=== PATIENT | female | born 1955 | race Caucasian/White ===

== ENCOUNTER → 2019-01-09 12:54 | Outpatient (ROUT) | payer BC, SELFPAY | PROVIDERS: Family Provider Family Medicine; PCP Family Medicine; Visit Provider Dermatology | DX: R59.9 Enlarged lymph nodes, unspecified (principal); L02.811 Cutaneous abscess of head [any part, except face] | CPT/HCPCS: 87070; 87075; 87077; 87147; 87186; 87205 ==

== ENCOUNTER → 2020-05-27 12:04 | Outpatient (CLI) | payer BC, SELFPAY ==
--- NOTE | 2020-05-27 12:11 | DI.RAD.S_ITS ---
PROCEDURE: XR CERVICAL SPINE 4V OR 5V INDICATIONS: Neck/BI Shoulder Pain TECHNIQUE: 5 views of the cervical spine acquired. COMPARISON: None. FINDINGS: Bones: No fractures or dislocations to the T1 level. Oblique images demonstrate no bony foraminal stenoses. Soft tissues: No prevertebral soft tissue swelling. IMPRESSION: Normal alignment, no subluxation, a definite pattern of spinal and foraminal stenosis is not seen. Dictated by: William Bernstein M.D. on 05/27/2020 at 14:02 Approved by: William Bernstein M.D. on 05/27/2020 at 14:03
--- NOTE | 2020-05-27 12:11 | DI.RAD.S_ITS ---
PROCEDURE: XR SHOULDER RT MIN 2V INDICATIONS: Neck/BI Shoulder Pain TECHNIQUE: 3 views of the shoulder were acquired. COMPARISON: None. FINDINGS: Bones: No fractures or dislocations. Mild AC joint osteoarthritis. No suspicious bony lesions. Visualized ribs appear intact. Soft tissues: No suspicious soft tissue calcifications. IMPRESSION: No trauma. Mild AC joint osteoarthritis. Dictated by: Willaim Bernstein M.D. on 05/27/2020 at 14:04 Approved by: William Bernstein M.D. on 05/27/2020 at 14:04
--- NOTE | 2020-05-27 12:11 | DI.RAD.S_ITS ---
PROCEDURE: XR SHOULDER LT MIN 2V INDICATIONS: Neck/BI Shoulder Pain TECHNIQUE: 3 views of the shoulder were acquired. COMPARISON: None. FINDINGS: Bones: No fractures or dislocations. No suspicious bony lesions. Visualized ribs appear intact. Soft tissues: No suspicious soft tissue calcifications. IMPRESSION: Mild AC joint osteoarthritis, mild glenohumeral joint degenerative change but no trauma or subluxation is seen. Dictated by: William Bernstein M.D. on 05/27/2020 at 14:03 Approved by: William Bernstein M.D. on 05/27/2020 at 14:04
== END ==
PROVIDERS: Family Provider Family Medicine; PCP Family Medicine; Referring Provider Chiropractor; Visit Provider Chiropractor
DX: M54.2 Cervicalgia (principal); M25.511 Pain in right shoulder; M25.512 Pain in left shoulder; M19.012 Primary osteoarthritis, left shoulder; M19.011 Primary osteoarthritis, right shoulder; M99.01 Segmental and somatic dysfunction of cervical region
CPT/HCPCS: 72050; 73030

== ENCOUNTER → 2020-11-07 11:12 | Outpatient (CLI) | payer BC, SELFPAY ==
[2020-11-07 11:30] LABS: Add Manual Diff / Slide Review NO; Basophils Absolute Auto 0 /uL (0-100); Basophils Percent Auto 0.9 % (0-2); Eosinophils Absolute Auto 100 /uL (0-450); Eosinophils Percent Auto 3.2 % (2-4); Hematocrit 41.1 % (36-46); Hemoglobin 13.9 g/dL (12.0-16.0); Lymphocytes Absolute Auto 2100 /uL (1100-4500); Lymphocytes Percent Auto 45.4 % (25-40); Mean Corpuscular HGB Conc 33.9 % (30-36); Mean Corpuscular Hemoglobin 31.2 PG (26-34); Mean Corpuscular Volume 92.2 fL (80-100); Monocytes Absolute Auto 400 /uL (0-900); Monocytes Percent Auto 8.6 % (3-14); Neutrophils Absolute Auto 1900 /uL (1500-7000); Neutrophils Percent Auto 41.9 % (50-75); Platelet Count 248 X10^3/uL (150-400); Red Blood Cell Count 4.46 X10^6/uL (4.0-5.2); Red Cell Distribution Width 13.1 % (11.6-14.8); White Blood Cell Count 4.6 X10^3/uL (4.5-11.0)
[2020-11-07 11:39] LABS: Hemoglobin A1C% w Est Avg Glu 5.9 % (4.0-6.0)
[2020-11-07 11:48] LABS: Alanine Aminotransferase 24 IU/L (<35); Albumin 4.3 g/dL (3.5-5.0); Albumin Globulin Ratio 1.4 (1.0-2.8); Alkaline Phosphatase 60 U/L (38-126); Aspartate Aminotransferase 32 IU/L (14-36); BUN Creatinine Ratio 18.8 (6-22); Bilirubin Total 0.7 mg/dL (0.2-1.3); Blood Urea Nitrogen 13 mg/dL (7-17); Calcium 9.3 mg/dL (8.4-10.2); Carbon Dioxide 30 mmol/L (22-32); Chloride 105 mmol/L (98-107); Cholesterol 262 mg/dL (140-199); Estimated Glomerular Filt Rate > 60.0 mL/min (>60); Glucose 110 mg/dL (80-110); HDL Cholesterol 71 mg/dL (40-60); HEMOLYSIS < 15 (0-50); LDL Cholesterol Calculated 175 mg/dL (<100); Potassium 4.3 mmol/L (3.4-5.1); Sodium 139 mmol/L (137-145); Total Protein 7.3 g/dL (6.3-8.2); Triglycerides 81 mg/dL (35-150)
[2020-11-07 12:55] LABS: Free T4, Direct Thyroxine 0.99 ng/dL (0.78-2.19)
[2020-11-07 13:10] LABS: Thyroid Stimulating Hormone 2.02 uIU/mL (0.47-4.68)
[2020-11-08 06:10] LABS: Thyroid Peroxidase Antibodies <9 IU/mL (0-34)
== END ==
PROVIDERS: Family Provider Family Medicine; PCP Naturopath; Referring Provider Naturopath; Visit Provider Naturopath
DX: Z00.00 Encounter for general adult medical examination without abnormal findings (principal); R53.83 Other fatigue
CPT/HCPCS: 36415; 80053; 80061; 83036; 84439; 84443; 84481; 85025; 86376

== ENCOUNTER 2021-07-14 13:09 | Emergency (ER) | payer BC, SELFPAY ==
[2021-07-14 13:17] VITALS: BP 166/95; PULSE 84; RESP 22; TEMP 36.3; O2SAT 100; BMI 25.0
--- NOTE | 2021-07-14 13:21 | DI.RAD.S_ITS ---
PROCEDURE: XR HAND RT 2V INDICATIONS: fall TECHNIQUE: 2 views of the hand(s) acquired. COMPARISON: None. FINDINGS: Bones: Acute comminuted and impacted distal radial fracture is seen. Slightly displaced ulnar styloid fracture is also noted. No gross acute fracture or dislocation is seen in the carpal bones, metacarpal bones and phalanges. Osteoarthritic changes throughout right hand and wrist joints are seen.. Carpal bones are normally aligned. No suspicious bony lesions. Soft tissues: No suspicious soft tissue calcifications. IMPRESSION: Wrist fracture as above. No definite acute right hand fracture or dislocation. Dictated by: Estrada Perez M.D. on 07/14/2021 at 13:52 Approved by: Estrada Perez M.D. on 07/14/2021 at 13:57
--- NOTE | 2021-07-14 13:22 | DI.RAD.S_ITS ---
PROCEDURE: XR WRIST RT 2V INDICATIONS: fall TECHNIQUE: 2 views of the wrist were acquired. COMPARISON: None. FINDINGS: Bones: Acute comminuted and impacted fracture involving distal radius is seen. Slightly displaced ulnar styloid fracture is also noted. No dislocation. Wrist joint osteoarthritic changes are seen. Soft tissues: No suspicious soft tissue calcifications. IMPRESSION: Acute comminuted and impacted distal radial fracture and slightly displaced ulnar styloid fracture. Dictated by: Estrada Perez M.D. on 07/14/2021 at 13:50 Approved by: Estrada Perez M.D. on 07/14/2021 at 13:52
[2021-07-14] MEDS: HYDROCODONE/ACET 5/325 TABLET 1 TAB PO ×2 (13:48→18:06)
--- NOTE | 2021-07-14 18:47 | ED_ITS ---
HPI - Extremity Injury (Upper) General Chief Complaint: Extremity Injury, Upper Stated Complaint: Poss broken right wrist Time Seen by Provider: 07/14/21 18:41 Source: patient and family Mode of arrival: Wheelchair History of Present Illness HPI narrative: 65-year-old woman with no significant medical history and no current medications slipped in her stocking feet half way down carpeted stairs landing on an outstretched left wrist left hip and slid the remainder of the way to the floor. She estimates approximately 10 stairs. She is not complaining of any other pain specifically no loss of consciousness, headache, head pain neck pain extremity pain aside from the wrist no thoracic pain. She was able to get up by herself and get to the emergency department for further evaluation. Related Data Home Medications Medication Instructions Recorded Confirmed Fish Oil 1,000 mg PO QDAY #0 11/21/12 Allergies Allergy/AdvReac Type Severity Reaction Status Date / Time Sulfa (Sulfonamide AdvReac Severe vomiting Verified 07/14/21 13:17 Antibiotics) and high [SULFA (SULFONAMIDE fever ANTIBIOTICS)] amoxicillin [AMOXICILLIN] AdvReac Unknown Verified 07/14/21 13:17 Review of Systems Review of Systems Narrative: Pertinent positive and negative findings as per HPI Remainder of review of systems is otherwise unremarkable for Constitutional: Fevers, chills, weakness ENT: No sore throat, neck pain, ear pain CV: Chest pain, palpitations, Respiratory: Cough, wheeze, dyspnea GI: Nausea, vomiting, diarrhea, : Dysuria, hematuria, Patient History Social History Smoking Status: Never smoker Smoking Status: Never smoker alcohol intake frequency: 0-2 drinks per day Substance Use Type: does not use Exam Initial Vital Signs Initial Vital Signs: Vital Signs Temperature 97.4 F L 07/14/21 13:17 Pulse Rate 84 07/14/21 13:17 Respiratory Rate 07/14/21 13:17 Blood Pressure 166/95 H 07/14/21 13:17 Pulse Oximetry 100 07/14/21 13:17 General: Healthy appearing, in no acute distress. Able to give a complete and coherent history. Well-nourished well-developed HEENT: Moist mucous membranes, normal sclera with reactive pupils, head is atraumatic Neck: No tenderness that occipital insertion sites or midline along the cervical spine supple Respiratory: Lungs are clear to auscultation, no wheezing no rales no rhonchi. Full and symmetrical air movement Chest: No chest contusions are abrasion and no tenderness with AP compression of the ribs Cardiac: Regular rate and rhythm no murmurs no bruits Abdomen: Soft, nontender, good bowel tones, no flank pain Thoracic lumbar spine: No tenderness along the thoracic or lumbar spine to pal pation, no pain elicited with pelvic ring manipulation. Skin: Warm and dry, no rashes Neurologic: Grossly neurologically intact with no obvious asymmetries or abnormalities Extremities: Right wrist with swelling, hematoma and deformity. No injuries to other extremities. All extremities are neurovascularly intact Psych: Cooperative, appropriate insight and affect Procedures Orthopedic Fracture Reduction Right wrist: Time of procedure: 19:23 Side: right Fracture Reduction Location: radius Analgesia: hematoma block Technique: direct manipulation Post Reduction X-rays Demonstrate: other (Post reduction CT is done for postoperative planning) Post-reduction vascular exam: intact Splint Applied: Yes Patient Tolerated Procedure: Well Orthopedic Splinting/Casting Right wrist: Time of procedure: 19:24 Side: right Upper Extremity Injury Location: wrist Upper Extremity Immobilizer: sling/shoulder immobilizer and volar splint Post splinting neuro exam: intact Post splinting vascular exam: intact Placed by: Provider Course Orders Ordered: ED Orders 07/14/21 13:21 XR hand RT 2V Stat 07/14/21 13:22 XR wrist RT 2V Stat 07/14/21 19:05 CT UE LT wo con Stat Discontinued Medications Hydrocodone Bitart/Acetaminophen (Hydrocodone/Acet 5/325 Tablet) 1 tab PO NOW ONE Stop: 07/14/21 13:45 Last Admin: 07/14/21 13:48 Dose: 1 tab Documented by: PATRICIA Hydrocodone Bitart/Acetaminophen (Hydrocodone/Acet 5/325 Tablet) 1 tab PO NOW ONE Stop: 07/14/21 18:04 Last Admin: 07/14/21 18:06 Dose: 1 tab Documented by: PATRICIA Hydromorphone HCl (Hydromorphone 1 Mg Inj) 1 mg IM NOW ONE Stop: 07/14/21 18:58 Last Admin: 07/14/21 19:00 Dose: 1 mg Documented by: Lidocaine/Sodium Bicarbonate (Lido 1%/Sod Bicarb 8.4% (10ml) 10 Ml Syringe) 10 ml INJ NOW ONE Stop: 07/14/21 18:50 Last Admin: 07/14/21 18:57 Dose: 10 ml Documented by: Vital Signs Vital signs: Vital Signs - 8 hr 07/14/21 13:17 Temperature 97.4 F L Pulse Rate 84 Respiratory Rate 22 Blood Pressure 166/95 H Pulse Oximetry 100 Discharge Plan Departure Prescriptions: No Action Fish Oil 1,000 mg PO QDAY Qty: 0 0RF Referrals: Shila Villarreal ND [Primary Care Provider] -
[2021-07-14] MEDS: LIDO 1%/SOD BICARB 8.4% (10ML) 10 ML SYRINGE INJ (18:57)
[2021-07-14] MEDS: HYDROMORPHONE 1 MG INJ IM (19:00)
--- NOTE | 2021-07-14 19:05 | DI.CT.S_ITS ---
PROCEDURE: CT UE RT WO CON INDICATIONS: Right wrist fracture, post reduction, pre-op TECHNIQUE: Noncontrast 1 mm axial sections acquired through the carpal bones, with coronal and sagittal reformats. COMPARISON: None. FINDINGS: Highly comminuted fracture of the distal radial metaphysis with extension of fracture planes into the radiocarpal joint space. Numerous fracture fragments are displaced. There is overall angulation of the dominant distal radial fracture fragment. The remaining bones are intact. There is a moderate sized wrist joint effusion. IMPRESSION: Comminuted, displaced, and angulated distal radial fracture with intra-articular extension. Dictated by: Bakari Sagastume M.D. on 07/14/2021 at 19:47 Approved by: Bakari Sagastume M.D. on 07/14/2021 at 19:49
[2021-07-14] MEDS: HYDROCODONE/ACET 5/325 PREPACK 1 BOTTLE MISC (19:39)
[2021-07-14 19:48] VITALS: BP 131/71; PULSE 84; RESP 16; O2SAT 93
== END 2021-07-14 19:54 | disposition home or self-care (01) ==
PROVIDERS: Emergency Provider Emergency Medicine; Family Provider Family Medicine; PCP Naturopath
DX: S52.501A Unspecified fracture of the lower end of right radius, initial encounter for closed fracture (principal); W10.9XXA Fall (on) (from) unspecified stairs and steps, initial encounter
CPT/HCPCS: 25605; 73100; 73120; 73200; 96372; 99284; J1170

== ENCOUNTER → 2021-07-16 13:07 | Outpatient (CLI) | payer BC, SELFPAY ==
[2021-07-16 16:29] LABS: COVID19 -Nasal RAPID Negative (Negative)
== END ==
PROVIDERS: Family Provider Family Medicine; PCP Naturopath; Visit Provider Family Medicine Sleep Medicine
DX: Z20.822 Contact with and (suspected) exposure to COVID-19 (principal)
CPT/HCPCS: 87635; C9803

== ENCOUNTER 2021-07-17 12:07 | Day surgery (SDC) | payer BC, SELFPAY ==
[2021-07-17] VITALS (22 sets, daily range): BP systolic 102–150; BP diastolic 7–83; PULSE 74–116; RESP 8–22; TEMP 36.2–37; O2SAT 85–100; BMI 26.6
--- NOTE | 2021-07-17 | DI.RAD.S_ITS ---
PROCEDURE: XR CHEST 1V INDICATIONS: Rule out pneumo TECHNIQUE: One view of the chest was acquired. COMPARISON: None. FINDINGS: Surgical changes and devices: None. Lungs and pleura: Mild pulmonary vascular congestion is seen. No focal infiltrate. No pleural effusions or pneumothorax. Mediastinum: Mediastinal contours appear normal. Heart size is normal. Bones and chest wall: No suspicious bony lesions. Overlying soft tissues appear unremarkable. IMPRESSION: Mild pulmonary vascular congestion. No focal infiltrate, pleural effusion or pneumothorax. Dictated by: Estrada Perez M.D. on 07/17/2021 at 19:36 Approved by: Estrada Perez M.D. on 07/17/2021 at 19:39
[2021-07-17] MEDS: LACTATED RINGERS 1,000 ML 42 ML IV ×2 (12:46→16:47)
--- NOTE | 2021-07-17 14:35 | SUR.OPER ---
Supine on padded OR bed, head on pillow, LEFT arm secured on padded arm boards at <90 degrees. Right arm on the handtable, legs uncrossed, safety belt at thigh, tape over blanket over lower legs.
[2021-07-17] MEDS: CEFAZOLIN 2 GM/20 ML SYRINGE IV (14:47)
[2021-07-17] MEDS: BUPIVACAINE 0.25% W/ EPI 30 ML VIAL INJ (15:06)
[2021-07-17] MEDS: fentaNYL 100 MCG/2 ML INJ IV ×3 (15:44→16:41)
--- NOTE | 2021-07-17 15:48 | SUR.OPER ---
patient's right middle finger ring was taken off in the OR by the surgeon and sent with the patient to OR in a specimen cup
--- NOTE | 2021-07-17 16:09 | PM.OP.1 ---
Operative Date/Time/Diagnoses Date of procedure: 07/17/21 Time of procedure: 16:09 Pre-op diagnosis: right Distal radius fracture intra-articular s52.571a right Ulnar styloid fracture s52.611a Post-op diagnosis: same Procedure & Clinicians Procedure: Open reduction internal fixation three-part plus intra-articular distal radius fracture, right CPT code 24574 Closed treatment ulnar styloid fracture CPT code 57456 Same procedure as scheduled: Yes Indications: Patient is a 65-year-old female that fell going down some stairs onto her right hand. She is right-hand dominant. She was seen at [facility] and found to have a displaced intra-articular right distal radius fracture and ulnar styloid fracture. She was indicated for open reduction internal fixation to restore radial inclination length and dorsal tilt and reduce the risks of posttraumatic arthritis and progressive dysfunction. The risks and benefits of the procedure have been discussed with the patient even opportunity to ask questions. The risks of surgery include but are not limited to infection, malunion, nonunion, persistence of pain, damage to nerves and blood vessels, posttraumatic arthritis, DVT, PE, cardiopulmonary complications and . The patient expressed a thorough understanding of the risks and benefits of surgery and has elected to proceed. Consent was signed. In office note had been noted that she had some numbness into her fingers and there was some concern for an evolving carpal tunnel syndrome however on examination in the preoperative area she denied numbness in her fingers. Noted some to pain in her thumb that improved after loosening the splint. There were no signs of acute carpal tunnel syndrome. Surgeon: Jacey Fuller Click Yes if Unassisted: Yes Anesthesia Type: General and Local Operative Notes Findings: Displaced intra-articular distal radius fracture with comminution both ulnarly and at the radial styloid. The fracture was cleaned and reduced and pinned with a K-wire. A standard Arthrex plate was then fit to the fracture provisionally pinned and checked for position. Once this was completed plate was definitively fixed to the bone. Following distal radius fixation the DRUJ was checked. Shuck was symmetrical to the contralateral side. Closed treatment ulnar styloid fracture. No evidence of scapholunate widening on intraoperative x-ray Closure Type: primary Prosthetic devices, grafts, tissues, transplants, or devices: Arthrex 3 hole standard volar distal radius plate cortical and locking screws in the shaft and locking screws and pegs distally. Estimated Blood Loss (mL): 10 Blood products transfused: none Tourniquet time (min): 46 Procedure in detail: The patient was seen in the site of surgery was marked in the preoperative area. The patient was then brought to the operating room placed on the operative table in the supine position. Hand table was placed on the operative side. General anesthesia was administered. SCDs were worn on the legs and all bony prominence were padded. A well-padded brachial tourniquet was placed. A formal time-out procedure was called confirming the patient's side and site of surgery administration of preoperative antibiotics and presence of consent. All agreed. The operative extremity was prepped and draped in the standard sterile fashion. An Esmarch was used for exsanguination and the brachial tourniquet was raised to 250 mm of mercury. Standard FCR approach to the wrist was drawn in the incision made. The FCR was exposed. The sheath was opened and the tendon was retracted ulnar protect the palmar cutaneous branch of the median nerve. Floor of the FCR was opened to expose the deep muscles. The FPL was retracted ulnar and the pronator quadratus was released from the radial border and reflected ulnar to expose the distal radius and distal fracture. Fracture was disimpacted and clean. The fracture was reduced with traction flexion ulnar deviation. A K-wire was advanced percutaneously from the radial styloid to the metaphysis to hold the reduction. Reduction was checked fluoroscopy and radial inclination tilt was recreated. There was comminution dorsally. Three hole standard Arthrex volar locking plate was selected and positioned and provisionally fixed with K-wires. Once this was satisfactory, nonlocking 3.5 screws placed in the oblong hole and secured. Distal screws were then placed 1st with nonlocking screws followed by locking pegs and screws. These were placed carefully not to penetrate the dorsal cortex. Once this was completed and checked for prominence the final shaft screws were placed. Again with care to avoid prominence. Final intraoperative images were obtained reviewed demonstrating no evidence of hardware prominence. Wrist motion was checked and was full and maintained and stable DRUJ. Pronation and supination were complete without blocks. The wound was then irrigated and closed in layers. Hemostasis was achieved and the tourniquet was released prior to closing. 3-0 Vicryl was used deep and 4-0 Monocryl subcutaneous and 3 O nylon in the skin. Sterile dressings with a volar splint were applied. There no immediate complications. Surgical counts were correct. The patient tolerated the procedure well was taken recovery room. Complications: none Post-operative Condition: stable Disposition: PACU Plan for aftercare: Weight-bearing limited to less than 2 lb on the operative extremity. May use a fork or coffee cup with that hand. Keep the splint dry. May loosen if needed. Otherwise keep intact. Follow-up in 2 weeks for suture removal placement of removable wrist brace and initiation of motion and therapy.
[2021-07-17] MEDS: ONDANSETRON 4 MG/2 ML INJ IV (16:27)
--- NOTE | 2021-07-17 16:53 | SUR.PHASEI ---
1650 SBAR report at bedside to Kira RN and Josh RN Pt moaning in pain, medicated with Fentanyl, Dr Stanford at bedside to do block, Dr Fuller to bedside to see patient at 1645 with patient reporting 18/10 pain
[2021-07-17] MEDS: HYDROMORPHONE 2 MG INJ IV (16:54)
--- NOTE | 2021-07-17 17:05 | SUR.PHASEI ---
Block start time [1701] . Monitoring initiated and maintained throughout procedure. Medications given by anesthesiologist instructions. Patient remained stable throughout procedure, no adverse reactions noted. Block end time [1705].
--- NOTE | 2021-07-17 19:05 | SUR.PHASEII ---
Pt awakens from sleep, reports that she feels like she 'can't get air. Coarse crackles auscaltated right lower lungs, otherwise breath sounds clear. Dr doshi informed, Chest x-ray ordered, RBAV.
--- NOTE | 2021-07-17 20:27 | SUR.PHASEII ---
2020 hrs. Chest x-ray negative. Pt states breathing easily, spo2 mid [address]. Dr Abdoulaye dozier discharge.
== END 2021-07-17 20:20 | disposition home or self-care (01) ==
PROVIDERS: Family Provider Family Medicine; PCP Naturopath; Referring Provider Orthopaedic Surgery Foot and Ankle Surgery; Visit Provider Orthopaedic Surgery Foot and Ankle Surgery
PROC: (CPT 25609; principal; 2021-07-17 13:45)
DX: S52.571A Other intraarticular fracture of lower end of right radius, initial encounter for closed fracture (principal); S52.611A Displaced fracture of right ulna styloid process, initial encounter for closed fracture; W10.9XXA Fall (on) (from) unspecified stairs and steps, initial encounter
CPT/HCPCS: 25609; 64450; 71045; C1713; J0690; J1170; J2250; J2405; J2704; J3010